=== PATIENT | male | born 1985 | race Caucasian/White ===

== ENCOUNTER 2023-04-30 13:27 | Emergency (ER) | payer SELFPAY ==
--- NOTE | ~2023-04-30 | US_ITS ---
EXAMINATION: US VENOUS ULTRASOUND WITH DOPPLER LOWER EXTREMITY, RIGHT CLINICAL INFORMATION: Pain COMPARISON: None available. TECHNIQUE: Ultrasound of the deep veins is performed from the hip to the calf with compression sonography and color and pulse Doppler assessment. Spectral analysis with color-flow imaging is performed. FINDINGS: There is normal venous compression and respiratory variation and augmented flow. The visualized common femoral vein, superficial femoral vein, profunda femoral vein, popliteal vein, and the trifurcation region shows no evidence of deep venous thrombosis. There is no significant popliteal fossa cyst. Contralateral left common femoral vein is patent. US/US venous duplex LE RT IMPRESSION: No DVT demonstrated in the right lower extremity.
--- NOTE | ~2023-04-30 | XR_ITS ---
EXAMINATION: XR KNEE, RIGHT CLINICAL INFORMATION: Pain COMPARISON: None available. TECHNIQUE: Four views of the right knee. FINDINGS: Bone alignment is normal. No fracture or dislocation. Normal joint spaces. No joint effusion. Soft tissue swelling over the lower anterior patella and patellar tendon. XR/XR knee RT 4V IMPRESSION: Anterior soft tissue swelling. No fracture or dislocation.
[2023-04-30 14:02] VITALS: BP 123/68; PULSE 86; RESP 16; TEMP 37.1; O2SAT 95; BMI 22.9
--- NOTE | 2023-04-30 14:03 | ED.GENADULT ---
HPI - General Adult General Chief complaint: Extremity Problem Stated complaint: ? fluid in knee going to ankle Time Seen by Provider: 04/30/23 15:14 Source: patient and family Mode of arrival: ambulatory Limitations: no limitations History of Present Illness HPI narrative: 38 year old male w/ no significant pmhx presents to the ED today w/ complaints of a swollen and red right knee for the past day. He admits to mild pain/discomfort, warmth, and states it has progressively worsened. He denies any fever, chills, nausea, vomiting, SOB, GARZA, chest pain, abdominal pain, pins/needles, or weakness. 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 He is concerned that an open scab from a picked ingrown hair could have led to an infection. He denies any clotting disorder, blood thinners, or history of DVT/PE. Onset (ago): day(s) (1) Location: lower extremity (right knee/leg) Quality: dull Pain Consistency: intermittent Relieving factors: none Exacerbating factors: movement Treatments prior to arrival: other (Tylenol) Related Data Previous Rx's Medication Instructions Recorded amoxicillin 875 mg-potassium 1 tab PO BID #20 tabs 04/30/23 clavulanate 125 mg tablet Allergies Allergy/AdvReac Type Severity Reaction Status Date / Time No Known Allergies Allergy Verified 04/30/23 14:02 [No Known Allergies*] Review of Systems Review of Systems: Yes all other systems are reviewed and are negative PMFSH Social History Social History Advance Directives: No Advance Directives Information Provided: Yes Physical Exam ED Vital Signs: Vital Signs - 24 hr 04/30/23 14:02 Temperature 98.7 F Pulse Rate 86 Respiratory Rate 16 Blood Pressure 123/68 Pulse Oximetry 95 Oxygen Delivery Method Room Air BMI result Body Mass Index 22.9 Appearance: Alert. Oriented X3. No acute distress. Head: normocephalic, atraumatic. Eyes: Pupils equal, round and reactive to light. . Neck: Normal visual inspection. Respiratory: No respiratory distress. Skin: Skin warm and dry. Normal skin turgor. No rashes. Extremities: (+) edematous, erythematous, warm right knee. Non-tender to palpation. Erythema and warmth extends to the pretibial area and lateral aspect of the lower leg. ROM, pulses, & sensation preserved. Normal inspection to the LLE and tracy UE. Neuro/psych: Oriented X 3. No motor deficit. No sensory deficit. Normal speech and cognition. Course Course Course Narrative: 38-year-old male presents for evaluation of right knee pain and swelling. There is some mild erythema to the right lower leg. Plan for labs, x-ray, ultrasound to rule out DVT he reports he was kneeling on the knee yesterday at work Medical Decision Making Medical Decision Making [facility] Narrative: 38 year old male w/ no significant pmhx presents to the ED today w/ complaints of a swollen and red right knee for the past day. On exam his VSS and NAD. ROM of the affected knee is preserved. Likely, cellulitis of the right lower leg. Unlikely, septic joint, gout, fracture, DVT, or psuedogout. US negative for DVT. WBC 14.9 but patient not tachycardic or febrile, no evidence of sepsis. Patient stable for d/c with PO abx. No MRSA risk factors. Plan: Augmentin x10/days, supportive care, f/u w/ primary. Differential Diagnosis Differential Diagnoses: The differential diagnosis associated with the presentation includes cellulitis, absces, septic joint, gout, fracture, DVT, or psuedogout. Admission/Observation Consideration of admission/observation: Escalation of care including admission/observation considered cellulitis w/ leukocytosis, considered obs/admit Lab Data [facility] Lab Attestation statement: I reviewed the patient's lab results. leukoytosis, no metabolic derrangements. 04/30/23 14:19 04/30/23 14:19 Labs: Lab Results 04/30/23 04/30/23 04/30/23 Range/Units 14:19 14:19 14:19 WBC 14.9 H (4.8-10.8) X10*3/uL RBC 4.56 L (4.60-5.80) X10*6/uL Hgb 14.0 (14.0-18.0) g/dl Hct 40.0 L (42.0-52.0) % MCV 87.7 (80.0-98.0) fL MCH 30.7 (27.0-33.0) pg MCHC 35.0 (31.0-36.0) g/dl RDW 12.1 (11.0-16.0) % Plt Count 301 (160-400) X10*3/uL MPV 10.2 (9.4-12.4) fL Immature Gran % (Auto) 0.3 (0.0-0.4) % Neut % (Auto) 75.2 H (45-73) % Lymph % (Auto) 11.1 L (20-40) % [place] % (Auto) 10.3 (2-11) % Eos % (Auto) 2.5 (0-4) % Baso % (Auto) 0.6 (0-2) % Lymph # (Auto) 1.7 (1.2-4.9) X10*3/uL [place] # (Auto) 1.5 H (0.1-1.2) X10*3/uL Eos # (Auto) 0.4 (0.0-0.4) X10*3/uL Baso # (Auto) 0.1 (0.0-0.2) X10*3/uL Abs Immat Gran (auto) 0.05 H (0.00-0.03) X10*3/uL Absolute Neuts (auto) 11.2 H (2.0-8.3) x10*3/uL Absolute Nucleated RBC 0.000 (0.0-0.012) X10*3/uL Nucleated RBC % (auto) 0.0 (0.0-0.2) /100WBC Smear Tech's Comments VERIFIED PT 12.7 (11.1-13.3) SEC INR 1.0 (0.9-1.1) APTT 27.5 (26.0-36.4) SEC Sodium 143 (135-145) mmol/L Potassium 4.5 (3.3-5.1) mmol/L Chloride 110 H (96-108) mmol/L Carbon Dioxide 25 (22-29) mmol/L Anion Gap 13 (12-20) BUN 15 (9-16) mg/dL Creatinine 0.89 (0.5-1.4) mg/dL Estim Creat Clear Calc 128.5 Estimated GFR > 60 Random Glucose 85 (60-115) mg/dL Calcium 9.3 (8.4-10.2) mg/dL Total Bilirubin 1.1 H (0.0-1.0) mg/dL AST 12 (5-37) U/L ALT 12 (0-40) U/L Alkaline Phosphatase 63 (39-117) U/L Total Protein 6.5 (6.5-8.0) g/dL Albumin 4.2 (3.5-5.0) g/dL Lipase 12 (8-78) U/L Independent Interpretation I performed an independent interpretation of an: Plain X-Ray and Ultrasound Interpretation: US reviewed - no evidence of DVT XR knee with no significant joint effusion, fx. agree w/ radiology read Radiology Impression Discussion of test interpretation with radiology: I have reviewed the radiologist's reading. Radiologist Impression: EXAMINATION:? US VENOUS ULTRASOUND WITH DOPPLER LOWER EXTREMITY, RIGHT CLINICAL INFORMATION:? Pain COMPARISON:? None available. TECHNIQUE: Ultrasound of the deep veins is performed from the hip to the calf with compression sonography and color and pulse Doppler assessment. Spectral analysis with color-flow imaging is performed. FINDINGS: There is normal venous compression and respiratory variation and augmented flow. The visualized common femoral vein, superficial femoral vein, profunda femoral vein, popliteal vein, and the trifurcation region shows no evidence of deep venous thrombosis. ? There is no significant popliteal fossa cyst. Contralateral left common femoral vein is patent. US/US venous duplex LE RT IMPRESSION: No DVT demonstrated in the right lower extremity. EXAMINATION: XR KNEE, RIGHT? CLINICAL INFORMATION: Pain? COMPARISON: None available.? TECHNIQUE: Four views of the right knee. FINDINGS: Bone alignment is normal. No fracture or dislocation. Normal joint spaces. No joint effusion. Soft tissue swelling over the lower anterior patella and patellar tendon.? XR/XR knee RT 4V IMPRESSION: Anterior soft tissue swelling. No fracture or dislocation. Independent Historian Clinical information obtained from an independent historian. History obtained from or confirmed by: Spouse Prescription Management I considered prescription management with: Pain Medication and Antibiotic Critical Care Time Critical Care Time Critical Care Time: No Discharge Plan Discharge Clinical Impression: Cellulitis Patient Disposition: Home, Self-Care Instructions: Cellulitis (DC) Additional Instructions: Take the prescribed antibiotics as directed, complete the entire course and do not miss any doses Elevate your leg when possible Take Motrin and Tylenol as needed for pain If you develop new or worsening symptoms call 911 or come back to the ER for further evaluation. Prescriptions: New amoxicillin-pot clavulanate 875-125 mg tablet 1 tab PO BID Qty: 20 0RF Stand Alone Forms: Work/School Release Interventions: ED Discharge Assessment Last Done: 04/30/23 16:01 Discharge Date/Time: 04/30/23 16:18
[2023-04-30 14:29] LABS: Basophils Absolute Auto 0.1 X10*3/uL (0.0-0.2); Basophils Percent Auto 0.6 % (0-2); Eosinophils Absolute Auto 0.4 X10*3/uL (0.0-0.4); Eosinophils Percent Auto 2.5 % (0-4); Imm Gran Abs Auto 0.05 X10*3/uL (0.00-0.03); Imm Gran Pct Auto 0.3 % (0.0-0.4); Lymphocytes Absolute Auto 1.7 X10*3/uL (1.2-4.9); Lymphocytes Percent Auto 11.1 % (20-40); MANUAL DIFF FLAG SCAN; Mean Corpuscular Hemoglobin 30.7 pg (27.0-33.0); Mean Corpuscular Volume 87.7 fL (80.0-98.0); Mean Platelet Volume 10.2 fL (9.4-12.4); Monocytes Absolute Auto 1.5 X10*3/uL (0.1-1.2); Monocytes Percent Auto 10.3 % (2-11); Neutrophils Absolute Auto 11.2 x10*3/uL (2.0-8.3); Neutrophils Percent Auto 75.2 % (45-73); Platelet Count 301 X10*3/uL (160-400); Red Blood Count 4.56 X10*6/uL (4.60-5.80); Red Cell Distribution Width 12.1 % (11.0-16.0); SCAN SMEAR FLAG 1; White Blood Count 14.9 X10*3/uL (4.8-10.8)
[2023-04-30 14:33] LABS: Prothrombin Time 12.7 SEC (11.1-13.3)
[2023-04-30 14:36] LABS: Partial Thromboplastin Time 27.5 SEC (26.0-36.4)
[2023-04-30 14:46] LABS: SLIDE REVIEW VERIFIED
[2023-04-30 15:52] LABS: Alanine Aminotransferase 12 U/L (0-40); Albumin Level 4.2 g/dL (3.5-5.0); Alkaline Phosphatase 63 U/L (39-117); Anion Gap 13 (12-20); Aspartate Amino Transferase 12 U/L (5-37); Blood Urea Nitrogen 15 mg/dL (9-16); Calcium 9.3 mg/dL (8.4-10.2); Carbon Dioxide 25 mmol/L (22-29); Chloride 110 mmol/L (96-108); Creatinine Clr Calc Pharmacy 128.5; Estimated Glomerular Filt Rate > 60; Glucose Random 85 mg/dL (60-115); Lipase 12 U/L (8-78); Potassium 4.5 mmol/L (3.3-5.1); Sodium 143 mmol/L (135-145); Total Protein 6.5 g/dL (6.5-8.0)
[2023-04-30 16:03] LABS: Bilirubin Total 1.1 mg/dL (0.0-1.0)
--- NOTE | 2023-04-30 16:16 | PC.NURSE ---
area of erythema traced with surgical marker, pt understands to return if area of redness crosses line
== END 2023-04-30 16:18 | disposition home or self-care (01) ==
LOC: HO.ED 16:07
PROVIDERS: Physician Assistant; Emergency Provider Emergency Medicine Emergency Medical Services
DX: L03.115 Cellulitis of right lower limb (principal); M25.461 Effusion, right knee; M79.661 Pain in right lower leg
CPT/HCPCS: 36415; 73564; 80053; 83690; 85025; 85610; 85730; 93971; 99282; 99284

== ENCOUNTER 2023-08-01 08:30 | Outpatient (AMB) | payer OTHER, SELFPAY ==
--- OUTSIDE RECORDS SUMMARY | 2023-08-01 08:31 | XMS_ITS | Continuity of Care Document ---
Author Name Unknown Organization [facility] Address [address] [place] [address] ve [address] [place] [address]- Care Team Providers Care Real Estate Teacher Name Role Phone Zoya Tim MD Primary Care Physician Encounter [facility] [place] Date(s): 09/28/22 - 10/05/[address] [place] [address]- Encounter Diagnosis Hemorrhoids(Discharge Diagnosis) - 09/28/22 Attending Physician: Ochoa BRITO, Ashley Barton Referring Physician: Zoya Tim MD Allergies, Adverse Reactions, Alerts No Known Allergies Immunizations Given and Recorded Vaccine Date Status Refusal Reason influenza virus vaccine, inactivated 08/23/22 Give n influenza virus vaccine, inactivated 09/21/21 Yang rded SARS-CoV-2 (COVID-19) mRNA BNT-162b2 vac 09/21/21 Recorded SARS-CoV-2 (COVID-19) mRNA BNT-162b2 vac 01/23/21 Recorded SARS-CoV-2 (COVID-19) mRNA BNT-162b2 vac 12/19/20 Recorded tetanus-diphtheria toxoids (Td) 08/09/14 Recorded tetanus/diphtheria/pertussis, acel(Tdap) 04/01/13 Recorded Medications hydrocortisone topical 25 mg suppository 1 supp = 25 mg, Rectally, 2 times a day, for 7 days, # 14 supp, 2 Refills, Acute 10/19/22 16:16:00 EST, 09/28/22 16:16:00 EST, Suppository, [id number], Partial fill upon patient request if the prescription is for a schedule II opioid... Start Date: 09/28/22 Stop Date: 10/19/22 Status: Ordered Problem List Condition Confirmation Course Effective Dates Status Health [facility] Informant History of hepatitis A Confirmed Active Diagnosis Diagnosis Type Effective Dates Health Status [facility] Service Informant Hemorrhoids Discharge Diagnosis 09/28/22 Vital Signs Most recent to oldest [Reference Range]: 1 Height 183 cm (09/28/22 3:34 PM) Weight 77 kg (09/28/22 3:34 PM) Pulse Rate [55-90 bpm] 95 bpm *H* (09/28/22 3:34 PM) Body Mass Index [18.5-24.99 kg/m2] 22.99 kg/m2 (09/28/22 3:34 PM) Blood Pressure [90-138/55-84 mm Hg] 129/ 85mm Hg (09/28/22 3:34 PM) Respiratory Rate [16-30 br/min] 16 br/mi n (09/28/22 3:34 PM) Temperature [96.8-100.4 DegF] 97.7 DegF (09/28/22 3:34 PM) Blood pressure sites Arm, right (09/28/22 3:34 PM) Temperature Route Temporal (09/28/22 3:34 PM) Weight Obtained Via Standing scale (09/28/22 3:34 PM) Social History Social History Type Response Smoking Status Never (less than 100 in lifetime) entered on: 08/23/22 Sex Patient Care team information Care Team Personnel Name: Glenroy CREWS, Zoya Alvarez Position: S Primary Care Physician Member Role: PCP Address: Address: [address] [place] [address] [place] [address]- Care Team Related Persons Name: DM CARTAGENA Address: home [address] [place] [address]
--- OUTSIDE RECORDS SUMMARY | 2023-08-01 08:31 | XMS_ITS | Continuity of Care Document ---
Author Name Unknown Organization [facility] Address [address] [place] [address] [address] [place] [address]- Care Team Providers Care Lasting Floorworker Name Role Phone Zoya Tim MD Primary Care Physician [phone] [place] [facility] [id number] Date(s): 09/28/22 - 11/26/[address] [place] [address]- [place] Attending Physician: Ochoa BRITO, Ashley Barton Referring [...] (Td) 08/09/14 Recorded tetanus/diphtheria/pertussis, acel(Tdap) 04/01/13 Recorded Problem List Condition Confirmation Course Effective Dates Status Health [facility] Informant Bright red rectal bleeding Confirmed Active History of hepatitis A Confirmed Active Elevated LFTs Confirmed Active Low back pain Confirmed Active Left elbow pain Confirmed Active Social History Social History Type Response Smoking Status Never (less than 100 in lifetime) entered on: 08/23/22 Sex Patient Care team information Care Team Personnel Name: Zoya Tim MD Position: S Primary Care Physician Member Role: PCP Address: Address: [address] [place] [address] [place] [address]- Care Team Related Persons Name: BLASDM SHORT Address: home [address] [place] [address]
--- OUTSIDE RECORDS SUMMARY | 2023-08-01 08:31 | XMS_ITS | Continuity of Care Document ---
Author Name Unknown Organization [facility] Address [address] [place] [address] ve [address] [place] [address]- Care Team Providers Care Sterile Process Tech Name Role Phone Zoya Tim MD Primary Care Physician [phone] Encounter [facility] [place] Date(s): 10/27/22 - 11/26/[address] [place] [address]- [place] Attending Physician: Jose Luis Trevino8 Admitting Physician: AdmtrMaximilian Referring Physician: Admtr Ar8 Allergies, Adverse Reactions, Alerts No Known Allergies [...] team information Care Team Personnel Name: Zoya iTm MD Position: S Primary Care Physician Member Role: PCP Address: Address: [address] [place] [address] [place] [address]- Care Team Related Persons Name: DM CARTAGENA Address: home [address] [place] [address]
--- OUTSIDE RECORDS SUMMARY | 2023-08-01 08:31 | XMS_ITS | Continuity of Care Document ---
Author Name Unknown Organization [facility] Address [address] [place] [address] ve [address] [place] [address]- Care Team Providers Care Boilerhouse Mechanic Name Role Phone Zoya Tim MD Primary Care Physician Encounter [facility] [place] Date(s): 08/27/22 - 10/02/[address] [place] [address]- Attending Physician: Makenzie Alaniz MD Referring Physician: Zoya Tim MD Allergies, Adverse [...] 10/19/22 16:16:00 EST, 09/28/22 16:16:00 EST, Suppository, [facility] #[id number], Partial fill upon patient request if the prescription is for a schedule II opioid... Start Date: 09/28/22 Stop Date: 10/19/22 Status: Ordered Problem List Condition Confirmation Course Effective Dates Status Health [facility] Informant History of hepatitis A Confirmed Active Social History Social History Type Response Smoking Status Never (less than 100 in lifetime) entered on: 08/23/22 Sex Patient Care team information Care Team Personnel Name: Glenroy CREWS, Zoya Alvarez Position: S Primary Care Physician Member Role: PCP Address: Address: [address] [place] [address]- Care Team Related Persons Name: DM CARTAGENA Address: home [address] [place] [id number]
--- NOTE | 2023-08-01 09:27 | MHC.OFFWIV ---
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 Patient works at [employer]. Recently he has been clearing the [employer] and was exposed to poison dottie. For the last week, patient is developed a rash on his groin, lower legs, upper extremities and neck. Very itchy and causing discomfort. [facility] Social History Patient Tobacco Use Status: Never used Tobacco Physical Exam Vital Signs: Last Vital Signs Temp 97.8 F 08/01/23 09:35 Pulse 80 08/01/23 09:35 BP 120/78 08/01/23 09:35 Pulse Ox 98 08/01/23 09:35 Oxygen Delivery Method Room Air 08/01/23 09:35 BMI result Body Mass Index 23.4 Skin Other: Linear erythematous rash with vesicles on the right and left forearms, right and left inner thighs and over the penis. Similar lesions are present over the neck. Assessment & Plan Assessment & Plan (1) Rash: Code(s): R21 - Rash and other nonspecific skin eruption Plan: Symptoms are due to contact dermatitis. Tapering dose of prednisone provided. Note for work given. Medications: New prednisone 6 pills by mouth day 1, 6 pills by mouth day 2, 5 pills by mouth day 3, 4 pills by mouth day 4, 3 pills by mouth day 5, 2 pills by mouth day 6, 1 pill by mouth day 7 and 1 pill by mouth day 8. 10 mg PO DAILY 28 tabs 0RF Coding Level of Care Code Est Pt Level 3 (78641) Diagnoses Rash R21
[2023-08-01 09:35] VITALS: BP 120/78; PULSE 80; TEMP 36.6; O2SAT 98; BMI 23.4
== END 2023-08-01 10:55 | disposition home or self-care (01) ==
PROVIDERS: Visit Provider Internal Medicine
DX: R21 Rash and other nonspecific skin eruption (principal)
CPT/HCPCS: 99213